=== PATIENT | female | born 1995 | race Caucasian/White ===

== ENCOUNTER 2018-04-08 16:52 | Emergency (ER) | payer SELFPAY, OTHER | END 2018-04-08 20:50 | disposition left against medical advice (07) | LOC: FTE 16:52 | DX: Z53.21 Procedure and treatment not carried out due to patient leaving prior to being seen by health care provider (principal) ==

== ENCOUNTER 2018-04-09 10:01 | Emergency (ER) | payer MEDICAID ==
[2018-04-09] MEDS: predniSONE 20 MG TAB PO (11:52)
[2018-04-09] MEDS: ALBUTEROL 0.083% (NEB) 2.5 MG/3 ML AMP HHN (11:59)
[2018-04-09] MEDS: IPRATROPIUM (NEB) 0.5 MG/2.5 ML AMP HHN (12:00)
== END 2018-04-09 12:55 | disposition home or self-care (01) ==
LOC: FTE 12:55
DX: R05 Cough (principal)
CPT/HCPCS: 94664; 99284-25